=== PATIENT | male | born 1985 | race Hispanic/Latino ===

== ENCOUNTER 2020-04-05 09:26 | Emergency (ER) | payer SELFPAY ==
[2020-04-05] MEDS ORDERED: Prochlorperazine 10 MG/2 ML VIAL ONE (10:10)
== END 2020-04-05 10:26 | disposition home or self-care (01) ==
LOC: MADERS 09:26
DX: R11.2 Nausea with vomiting, unspecified (principal); E66.9 Obesity, unspecified
CPT/HCPCS: 96372; 99283; J0780